=== PATIENT | female | born 1985 | race Caucasian/White ===

== ENCOUNTER 2025-04-03 19:27 | Inpatient (IN) | payer MEDICAID ==
[~2025-04-03] VITALS: Ht 175.3 cm; Wt 83.9 kg
[2025-04-03 20:00] VITALS: BP 143/99; TEMP 97.3
[2025-04-03] MEDS ORDERED: GABA600T12 PO (20:42)
[2025-04-03] MEDS ORDERED: BUPR1FIL7 SL (20:42)
[2025-04-03] MEDS ORDERED: MAGNESIUM HYDROXIDE 30 ML UDC PO PRN (21:30)
[2025-04-03] MEDS ORDERED: MAG HYDROX/AL HYDROX/SIMETH 30 ML UDC PO PRN (21:30)
[2025-04-03] MEDS: IV D5/ 0.9% NACL 1,000 ML IV SCH (21:37)
[2025-04-03] MEDS: CHLORDIAZEPOXIDE HCL 25 MG CAPSULE PO SCH (22:04)
[2025-04-03] MEDS: LORAZEPAM INJ 2 MG/ML VIAL IV PRN (22:48)
[2025-04-03] MEDS: ACETAMINOPHEN 325 MG TABLET PO PRN (23:45)
[2025-04-04] VITALS (7 sets, daily range): BP systolic 123–157; BP diastolic 78–97; TEMP 98.1–99; O2SAT 98–100
[2025-04-04 07:10] LABS: APPEARANCE,URINE CLEAR (CLEAR); BILIRUBIN,URINE NEGATIVE (NEGATIVE); BLOOD, URINE NEGATIVE Ery/uL (NEGATIVE); COLOR,URINE YELLOW (YELLOW); KETONES,URINE NEGATIVE (NEGATIVE); LEUKOCYTE ESTERASE ,URINE NEGATIVE (NEGATIVE); NITRITE, URINE NEGATIVE (NEGATIVE); PROTEIN,URINE NEGATIVE (NEGATIVE); UGLUCOSE NEGATIVE (NEGATIVE); UROBILINOGEN,URINE 0.2 EU/dL (0.2)
[2025-04-04 07:27] LABS: BASOPHILS % (AUTO) 0.5 % (0.0-2.0); EOSINOPHILS % (AUTO) 0.5 % (0.0-6.0); HEMATOCRIT 39 % (33-45); HEMOGLOBIN 13.1 g/dL (11.5-14.8); LYMPHOCYTES # (AUTO) 1.9 K/uL (0.8-4.8); LYMPHOCYTES % (AUTO) 25.9 % (20.0-44.0); MEAN CORPUSCULAR HEMOGLOBIN 30 PG (26.0-33.0); MEAN CORPUSCULAR HGB CONC 34 g/dl (31.0-36.0); MEAN CORPUSCULAR VOLUME 90 fL (82-100); MONOCYTES # (AUTO) 0.4 K/uL (0.1-1.30); MONOCYTES % (AUTO) 4.9 % (2.0-12.0); NEUTROPHILS # (AUTO) 4.9 K/uL (1.8-8.9); NEUTROPHILS % (AUTO) 68.2 % (43.0-81.0); PLATELET COUNT (AUTO) 381 K/uL (150-450); RED BLOOD CELL COUNT(AUTO) 4.34 MIL/uL (4.0-5.2); RED CELL DISTRIBUTION WIDTH 13.6 % (11.5-15.0); WHITE BLOOD COUNT (AUTO) 7.3 K/uL (4.3-11.0)
[2025-04-04 07:50] LABS: CALCIUM, SERUM 8.6 mg/dL (8.5-10.1); CREATININE 0.8 mg/dL (0.6-1.3); MAGNESIUM 1.6 mg/dL (1.8-2.4); PHOSPHORUS 3.3 mg/dL (2.5-4.9); POTASSIUM 3.2 mmol/L (3.5-5.1)
[2025-04-04 08:02] LABS: THYROID STIMULATING HORMONE 1.09 uIU/mL (0.358-3.74)
[2025-04-04] MEDS: FOLIC ACID 1 MG TABLET PO SCH (08:28)
[2025-04-04] MEDS: MULTIVITAMINS,THERAGRAN 1 UDTAB TABLET PO SCH (08:28)
[2025-04-04] MEDS: THIAMINE HCL 100 MG TABLET PO SCH (08:28)
[2025-04-04] MEDS: PANTOPRAZOLE 40 MG TABLET.DR PO SCH (08:28)
[2025-04-04] MEDS ORDERED: QUET200T PO (08:47)
[2025-04-04] MEDS ORDERED: ESCI5TAB PO (08:47)
[2025-04-04] MEDS: LORAZEPAM INJ 2 MG/ML VIAL IV STA (08:57)
[2025-04-04] MEDS ORDERED: CHLORDIAZEPOXIDE HCL 25 MG CAPSULE PO SCH (09:00)
[2025-04-04] MEDS: IV D5/ 0.9% NACL 1,000 ML IV PRN (09:50)
[2025-04-04] MEDS: POTASSIUM CHLORIDE 20 MEQ POWDER PACKET NG SCH (10:25)
[2025-04-04] MEDS: MAGNESIUM OXIDE 400 MG TABLET PO ONE (11:24)
[2025-04-04] MEDS: LORAZEPAM INJ 2 MG/ML VIAL IV PRN (17:52)
[2025-04-04 18:12] LABS: PREGNANCY TEST URINE QUAL NEGATIVE (NEGATIVE)
[2025-04-05] VITALS (8 sets, daily range): BP systolic 117–154; BP diastolic 77–106; TEMP 98.1–99.5; O2SAT 98–100
[2025-04-05 07:05] LABS: BASOPHILS % (AUTO) 0.4 % (0.0-2.0); EOSINOPHILS # (AUTO) 0.1 K/uL (0.0-0.7); EOSINOPHILS % (AUTO) 1.9 % (0.0-6.0); HEMATOCRIT 37 % (33-45); HEMOGLOBIN 12.8 g/dL (11.5-14.8); LYMPHOCYTES # (AUTO) 2.5 K/uL (0.8-4.8); MEAN CORPUSCULAR HEMOGLOBIN 31 PG (26.0-33.0); MEAN CORPUSCULAR HGB CONC 34 g/dl (31.0-36.0); MEAN CORPUSCULAR VOLUME 89 fL (82-100); MONOCYTES # (AUTO) 0.4 K/uL (0.1-1.30); MONOCYTES % (AUTO) 6.7 % (2.0-12.0); NEUTROPHILS # (AUTO) 2.9 K/uL (1.8-8.9); PLATELET COUNT (AUTO) 333 K/uL (150-450); RED BLOOD CELL COUNT(AUTO) 4.17 MIL/uL (4.0-5.2); RED CELL DISTRIBUTION WIDTH 13.7 % (11.5-15.0)
[2025-04-05 07:13] LABS: CALCIUM, SERUM 8.8 mg/dL (8.5-10.1); CREATININE 0.8 mg/dL (0.6-1.3); MAGNESIUM 1.5 mg/dL (1.8-2.4); PHOSPHORUS 4.4 mg/dL (2.5-4.9); POTASSIUM 3.6 mmol/L (3.5-5.1)
[2025-04-05] MEDS: THERAHONEY GEL 1.5 OZ TUBE TP SCH (08:27)
[2025-04-05] MEDS: LORAZEPAM INJ 2 MG/ML VIAL IV PRN (11:12)
[2025-04-05] MEDS: MAGNESIUM OXIDE 400 MG TABLET PO ONE (11:44)
[2025-04-05] MEDS: TRAZODONE 50 MG TABLET PO ONE (15:54)
[2025-04-05] MEDS: MUPIROCIN OINT 2% 22 GM TUBE NS SCH (21:12)
[2025-04-05] MEDS ORDERED: TRAZODONE 50 MG TABLET PO SCH (22:00)
[2025-04-06] VITALS (12 sets, daily range): BP systolic 119–147; BP diastolic 77–99; TEMP 97.7–98.5; O2SAT 95–100
[2025-04-06 08:16] LABS: CALCIUM, SERUM 9.2 mg/dL (8.5-10.1); CREATININE 0.9 mg/dL (0.6-1.3); POTASSIUM 3.6 mmol/L (3.5-5.1)
[2025-04-06 08:21] LABS: MAGNESIUM 1.6 mg/dL (1.8-2.4); PHOSPHORUS 4.6 mg/dL (2.5-4.9)
[2025-04-06] MEDS: MAGNESIUM OXIDE 400 MG TABLET PO ONE (11:06)
[2025-04-06 16:56] LABS: ABG OXYGEN SATURATION 95.2 % (94.0-98.0); ABG PCO2 33.3 mmHg (32.0-45.0); ABG PH 7.459 (7.350-7.450); ABG PO2 78.3 mmHg (83.0-108.0); ABG TOTAL HEMOGLOBIN 14.8 G/dL (12.0-16.0); COHb 0.2 % (0.5-1.5); MetHb 0.3 % (0.0-1.5); O2Hb 94.7 % (94.0-97.0); SITE, ABG LEFT RADIAL
[2025-04-06] MEDS ORDERED: PANTOPRAZOLE 40 MG VIAL IV SCH (17:00)
[2025-04-06] MEDS: IV NS 0.9% 1,000 ML BAG IV ONE (17:05)
[2025-04-06] MEDS: LORAZEPAM INJ 2 MG/ML VIAL IV PRN (17:48)
[2025-04-06 18:17] LABS: ALBUMIN 3.6 g/dL (3.4-5.0); BILIRUBIN,TOTAL 0.2 mg/dL (0.2-1.0); CALCIUM, SERUM 9.8 mg/dL (8.5-10.1); CREATININE 0.9 mg/dL (0.6-1.3)
[2025-04-06] MEDS ORDERED: HALOPERIDOL LACTATE INJ 5 MG/ML VIAL IM PRN (19:00)
[2025-04-06] MEDS: PANTOPRAZOLE 40 MG TABLET.DR PO SCH (20:08)
[2025-04-06] MEDS: TRAZODONE 50 MG TABLET PO SCH (21:50)
[2025-04-06] MEDS ORDERED: TRAZODONE 50 MG TABLET PO SCH (22:00)
[2025-04-07] VITALS (13 sets, daily range): BP systolic 118–133; BP diastolic 60–94; TEMP 97.5–98.2; O2SAT 98–100
[2025-04-07 08:07] LABS: CALCIUM, SERUM 9.1 mg/dL (8.5-10.1); CREATININE 0.8 mg/dL (0.6-1.3); POTASSIUM 3.9 mmol/L (3.5-5.1)
[2025-04-07] MEDS: GABAPENTIN 100 MG CAPSULE PO SCH (08:47)
[2025-04-07 08:59] LABS: MAGNESIUM 1.6 mg/dL (1.8-2.4); PHOSPHORUS 4.6 mg/dL (2.5-4.9)
[2025-04-07] MEDS: MAGNESIUM OXIDE 400 MG TABLET PO ONE (11:10)
[2025-04-07] MEDS: ONDANSETRON HCL/PF 4 MG/2 ML VIAL IVP PRN (11:37)
[2025-04-08] VITALS (17 sets, daily range): BP systolic 108–133; BP diastolic 61–96; TEMP 97.9–98.8; O2SAT 97–100
[2025-04-08 07:18] LABS: CREATININE 0.8 mg/dL (0.6-1.3); MAGNESIUM 1.7 mg/dL (1.8-2.4); POTASSIUM 4.2 mmol/L (3.5-5.1)
[2025-04-08] MEDS: SERTRALINE HCL 25 MG TABLET PO SCH (08:19)
[2025-04-08] MEDS ORDERED: SERT25TA5 PO (10:04)
[2025-04-08] MEDS ORDERED: PANT40TA49 PO (10:04)
[2025-04-08] MEDS ORDERED: TRAZ-252 PO (10:04)
[2025-04-08] MEDS ORDERED: FOLI0.8T3 PO (10:09)
[2025-04-08] MEDS ORDERED: THIA100T70 PO (10:09)
[2025-04-08] MEDS: MAGNESIUM OXIDE 400 MG TABLET PO ONE (10:33)
[2025-04-08] MEDS: GABAPENTIN 300 MG CAPSULE PO SCH (12:37)
[2025-04-08 19:38] LABS: BASOPHILS # (AUTO) 0.1 K/uL (0.0-0.2); BASOPHILS % (AUTO) 1.2 % (0.0-2.0); EOSINOPHILS # (AUTO) 0.1 K/uL (0.0-0.7); HEMATOCRIT 38 % (33-45); HEMOGLOBIN 12.7 g/dL (11.5-14.8); LYMPHOCYTES # (AUTO) 1.8 K/uL (0.8-4.8); LYMPHOCYTES % (AUTO) 20.4 % (20.0-44.0); MEAN CORPUSCULAR HEMOGLOBIN 31 PG (26.0-33.0); MEAN CORPUSCULAR HGB CONC 34 g/dl (31.0-36.0); MEAN CORPUSCULAR VOLUME 92 fL (82-100); MONOCYTES # (AUTO) 1.3 K/uL (0.1-1.30); MONOCYTES % (AUTO) 14.5 % (2.0-12.0); NEUTROPHILS # (AUTO) 5.7 K/uL (1.8-8.9); NEUTROPHILS % (AUTO) 62.9 % (43.0-81.0); PLATELET COUNT (AUTO) 343 K/uL (150-450); RED BLOOD CELL COUNT(AUTO) 4.11 MIL/uL (4.0-5.2); RED CELL DISTRIBUTION WIDTH 14.7 % (11.5-15.0)
[2025-04-09] VITALS (10 sets, daily range): BP systolic 106–135; BP diastolic 70–84; TEMP 97.9–98.6; O2SAT 98–100
[2025-04-09 07:03] LABS: CALCIUM, SERUM 9.2 mg/dL (8.5-10.1); CREATININE 0.8 mg/dL (0.6-1.3)
== END 2025-04-09 11:07 | DRG 773 ==
LOC: MEDSG1 20:23 → TELE1 22:00 → TELE-TD 04-06 16:56 → TELE1 04-08 09:39 → MEDSG1 04-08 09:43
DX: F10.139 Alcohol abuse with withdrawal, unspecified (principal); F11.10 Opioid abuse, uncomplicated; E87.1 Hypo-osmolality and hyponatremia; R45.851 Suicidal ideations; Z59.02 Unsheltered homelessness; F15.10 Other stimulant abuse, uncomplicated; F12.10 Cannabis abuse, uncomplicated; E87.6 Hypokalemia; Z88.0 Allergy status to penicillin; T49.0X2A Poisoning by local antifungal, anti-infective and anti-inflammatory drugs, intentional self-harm, initial encounter; Y92.230 Patient room in hospital as the place of occurrence of the external cause; S90.822S Blister (nonthermal), left foot, sequela; X58.XXXS Exposure to other specified factors, sequela; S91.312A Laceration without foreign body, left foot, initial encounter; X58.XXXA Exposure to other specified factors, initial encounter; Y92.410 Unspecified street and highway as the place of occurrence of the external cause; F41.1 Generalized anxiety disorder; F32.A Depression, unspecified
CPT/HCPCS: 36415; 80048-TC; 80053-TC; 80061-TC; 82803-TC; 83735-TC; 83935-TC; 84100-TC; 84443-TC; 84703-TC; 85025-TC; 87081-TC; 97112-TC; 97116-TC; 97530-TC; 98960; A4223; G0378; G0480; J2060; J2405; J3490; J7030; J7042; J7070